=== PATIENT | female | born 1960 | race Caucasian/White ===

== ENCOUNTER 2019-02-02 01:39 | Emergency (ER) | payer OTHER ==
[~2019-02-02] VITALS: Ht 160 cm; Wt 54.4 kg
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
[2019-02-02] MEDS ORDERED: HYDROCODONE/APAP 5/325MG 1 EACH TABLET PO ONE (02:00)
[2019-02-02] MEDS ORDERED: IBUPROFEN 400 MG TABLET PO ONE (02:00)
[2019-02-02] MEDS ORDERED: SILVER SULFADIAZINE CREAM 25 GM TUBE ONE (02:08)
[2019-02-02] MEDS ORDERED: HYDROCODONE/APAP 5/325MG 1 EACH TABLET ONE (02:09)
[2019-02-02] MEDS ORDERED: IBUPROFEN 400 MG TABLET ONE (02:10)
[2019-02-02] MEDS ORDERED: SILVER SULFADIAZINE CREAM 25 GM TUBE TP ONE (02:30)
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
[2019-02-02 02:35] VITALS: BP 139/88
== END 2019-02-02 02:36 | disposition home or self-care (01) ==
LOC: ER 01:45
DX: T21.22XA Burn of second degree of abdominal wall, initial encounter (principal); Z98.890 Other specified postprocedural states; Z60.2 Problems related to living alone; X08.8XXA Exposure to other specified smoke, fire and flames, initial encounter; Y93.89 Activity, other specified; Y92.89 Other specified places as the place of occurrence of the external cause; Y99.8 Other external cause status
CPT/HCPCS: 16020; 99284; A6253